=== PATIENT | male | born 1965 | race Caucasian/White ===

== ENCOUNTER 2019-05-26 14:13 | Emergency (ER) | payer BC ==
[2019-05-26 14:19] VITALS: BP 178/102
--- NOTE | 2019-05-26 14:43 | ER Document Report ---
HPI - HPI Time Seen by Provider: 05/26/19 14:33 Pain Level: 3 Notes: Patient is a 54-year-old male with a history of ACL surgery to the right knee who presents complaining of right knee pain status post injury yesterday. Patient states that he stepped backwards and may have twisted his knee. He has noticed some swelling to his knee, but no redness or bruising. Denies drug allergies. He is able to ambulate, but is limping. Pain does not radiate. Denies any headache, fever, neck pain, URI, sore throat, chest pain, palpitations, syncope, cough, shortness of breath, wheeze, dyspnea, abdominal pain, nausea/vomiting/diarrhea, urinary retention, dysuria, hematuria, numbness/tingling, or rash. - ROS Systems Reviewed and Negative: Yes All other systems reviewed and negative - MUSCULOSKELETAL Musculoskeletal: REPORTS: Extremity pain Past Medical History - Social History Smoking Status: Never Smoker Chew tobacco use (# tins/day): Yes Family History: Reviewed & Not Pertinent Patient has suicidal ideation: No Patient has homicidal ideation: No - Past Medical History Cardiac Medical History: Reports: Hx Hypercholesterolemia, Hx Hypertension Endocrine Medical History: Reports: Hx Diabetes Mellitus Type 2 Past Surgical History: Reports: Hx Orthopedic Surgery Vertical Provider Document - CONSTITUTIONAL Agree With Documented VS: Yes Notes: PHYSICAL EXAMINATION: GENERAL: Well-appearing, well-nourished and in no acute distress. LUNGS: Breath sounds clear to auscultation bilaterally and equal. No wheezes rales or rhonchi. HEART: Regular rate and rhythm without murmurs, rubs, gallops. Musculoskeletal: Rt knee: + mild swelling noted with effusion. No obvious ecchymosis or deformity. FROM to passive/active. Strength 5+/5. N/V intact distal. + mild anterosuperior tenderness to movement/palp. No calf tenderness. Extremities: No cyanosis, clubbing, or edema b/l. Peripheral pulses 2+. Capillary refill less than 3 seconds. Harris neg b/l. NEUROLOGICAL: Normal speech, normal gait. Normal sensory, motor exams PSYCH: Normal mood, normal affect. SKIN: Warm, Dry, normal turgor, no rashes or lesions noted. Course - Re-evaluation Re-evalutation: 05/26/19 Patient is an afebrile, well-hydrated, 54-year-old male who presents to the ED with Rt knee pain which I suspect to be a sprain versus strain, ?internal involvement. Vitals are acceptable without any significant tachycardia, tachypnea, or hypoxia. PE is otherwise unremarkable for any neurovascular compromise, obvious tendon/ligament rupture, obvious fracture/dislocation, septic joint. X-ray was unremarkable for any acute pathology aside from effusion and loose body ?acuity. Knee immobilizer and crutches were provided today. Patient declined any Tylenol or ice. Patient is nontoxic-appearing. Patient is able to ambulate and weight-bear although he is limping. No other labs or imaging warranted at this time based on H&P. Conservative measures otherwise for symptoms. Recheck with your PCM in 3-5 days. Schedule appointment with orthopedics. Return to the ED with any worsening/concerning symptoms otherwise as reviewed in discharge. Patient is in agreement. - Vital Signs Vital signs: Temp Pulse Resp BP Pulse Ox 98.4 F 88 16 178/102 H 96 05/26/19 14:17 05/26/19 14:17 05/26/19 14:17 05/26/19 14:17 05/26/19 14:17 Discharge - Discharge Clinical Impression: Right knee pain Qualifiers: Chronicity: acute Qualified Code(s): M25.561 - Pain in right knee Condition: Stable Disposition: HOME, SELF-CARE Additional Instructions: Rest, Ice, Compression, Elevation Tylenol/ibuprofen as needed Light stretches daily Strength exercises as able Moist heat and massage may help F/u with your PCP in 3-5 days for a recheck Schedule an appointment with orthopedics for further evaluation and management Return to the ED with any worsening symptoms and/or development of fever, headache, chest pain, palpitations, syncope, shortness of breath, trouble breathing, abdominal pain, n/v/d, muscle weakness/paralysis, numbness/tingling, swelling, redness, or other worsening symptoms that are concerning to you. Forms: Elevated Blood Pressure Referrals: [facility] [Provider Group] - Follow up as needed MAIKEL ESTRELLA JR, DO [ACTIVE PROVISIONAL STAFF] - Follow up as needed
--- NOTE | 2019-05-26 15:31 | RADIOLOGY REPORT (SQ) ---
EXAM DESCRIPTION: KNEE RIGHT 4 VIEWS COMPLETED DATE/TIME: 05/26/2019 3:17 pm REASON FOR STUDY: Rt knee pain . Stepped in a hole, all over pain. COMPARISON: None. NUMBER OF VIEWS: Four views. TECHNIQUE: AP, lateral, and both oblique radiographic images acquired of the right knee. LIMITATIONS: None. FINDINGS: MINERALIZATION: Normal. BONES: No acute fracture or dislocation. Orthopedic hardware noted at the distal femur and proximal tibia. Mild degenerative changes with osteophytosis at the medial tibiofemoral compartment. JOINT: There is a moderate joint effusion. There is a 12 mm calcification at the knee joint suggesti ve of an intra-articular loose body. SOFT TISSUES: No soft tissue swelling. No radio-opaque foreign body. IMPRESSION: Moderate joint effusion at the right knee with an intra-articular loose body. No radiog raphic evidence for acute fracture. Mild degenerative changes. TECHNICAL DOCUMENTATION: JOB ID: [id number] [employer]- All Rights Reserved Reading location - IP/workstation name: [email or web address]
== END 2019-05-26 16:13 | disposition home or self-care (01) ==
LOC: ER 14:13
DX: M25.561 Pain in right knee (principal); M25.461 Effusion, right knee; I10 Essential (primary) hypertension; E11.9 Type 2 diabetes mellitus without complications; Z72.0 Tobacco use
CPT/HCPCS: 99283; 73564; L1830